=== PATIENT | male | born 1960 | race Caucasian/White ===

== ENCOUNTER 2022-01-14 08:09 | Inpatient (IN) ==
--- NOTE | 2022-01-14 08:29 | Emergency Department Note ---
Impression & Plan Acute pulmonary embolism, Chest pain, SOB (shortness of breath), Pulmonary cavitary lesion ED Provider Note Name: GUERLINE SRIVASTAVA Age: 61 Sex: M Arrives Via: Walk-In Informant: Patient ED Provider: Cullen Bailey MD Chief Complaint: Chest pain Impression: As per impressions above Medical Decision Makin-year-old gentleman arrives for evaluation of pleuritic left-sided chest pain. Patient with a history of hypertension, BPH, anemia who previously was living in [place] until moving here fairly recently. He did have COVID about a year and a half ago. Given the amount of discomfort distress he is in a CT of the chest was obtained for angio/PE. It reveals a right lower lobe PE and diffuse scarring/infiltrate/edema of bilateral lungs as well as a right upper lobe cavitary lesion that is 2 cm in size. Patient without any significant recent TB risk factors but was previously in the served throughout the [facility]. He has had multiple negative TB tests since then no and he notes previous CT that never showed this lesion before. At this point we will keep in airborne precautions until cleared by hospitalist/pulmonology. As for his chest pain he was given some IV narcotics with improvement in pain. He has no significant EKG findings nor elevated troponin thus I do not feel that this is consistent with ACS given its ongoing nature. He was started on heparin for the PE especially given the amount of dyspnea is having with it. I did discuss the risks and benefits he is agreeable to proceeding. Hospitalist then for further management. Prior Medical Record and Triage/Nursing Notes reviewed by Me Additional history obtained from chart Differentials: Cardiac ischemia, aortic dissection, pulmonary embolism, pneumothorax, pneumonia, pericarditis, myocarditis, esophageal rupture, GERD, cholecystitis, pancreatitis, musculoskeletal, as well as other pathologies. Vital Signs: reviewed and remarkable for no significant abnormalities Interventions: Dilaudid IV, heparin IV Labs:Reviewed and remarkable for negative COVID, positive dimer, negative Trope Imaging:CT imaging of the chest with angio as per radiologist CT read on chart of note right upper lobe cavitary lesion, PE in the right, bilateral inflammatory/overload next EKG:As per my interpretation. Patient chest pain. Normal sinus rhythm at 88 bpm with a QTC of 471. There is no previous EKG for comparison. There is no ectopy nor ischemia appreciated. Cardiac/Tele Monitoring: Cardiac Monitoring: An Order was placed for continuous cardiac monitoring. The monitor shows a rate of 80 with a normal sinus rhythm. Consults:Dr Nolberto BERTRAND Hospitalist Plan: Disposition:Hospitalization. Condition: Good History of Present Illness:61-year-old M arrives for evaluation of left-sided chest pain. Pain began yesterday. Primarily associated with feeling he cannot catch his breath. He has significant pain with any deep inspiration. It is worse with movement. Does sometimes come in waves. States the pain is sharp stabbing left-sided chest sometimes through to his back. Denies any radiation to neck/arm/right-sided chest or abdomen. Denies any nausea, vomiting, fevers, chills, syncope, palpitations, leg swelling, calf pain, bleeding/bruising, headaches, neck pain, neurologic deficits or other concerning signs or symptoms. He has no history of cardiac disease. He has a grandmother had a history of a heart attack. Patient has a history of hypertension, BPH, anemia, insomnia. Notes has been having some issues keeping his blood pressure under control. He also notes that he had a history of a right leg swelling with an elevated D- dimer. At that time he had an ultrasound of the leg but the swelling went away and he never had any issues again. The ultrasound did not show DVT when it was done years ago. No medications prior to arrival. Patient notes a deep breath makes his chest pain worse rest makes it better. ROS: See above HPI for pertinent positives & negatives. A total of 10 systems reviewed and were otherwise negative. 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 Home Medications:Amitriptyline, terazosin Allergies:No known drug allergies the notes he had side effects with an unknown pain medicine one-point in the past. Vitals:Blood Pressure: 195/103, Pulse 90, RR 18, T 36.5C, O2 98% on RA Physical Exam: GENERAL: Patient is uncomfortable appearing and in moderate distress. EYES: No scleral icterus, unremarkable pupils. ENT: Mucous membranes moist, no nasal congestion. NECK: No masses appreciated, nomeningismus, trachea is midline. RESPIRATORY: Dyspnea and tachypnea with discomfort. Clear to auscultation and eq ual bilaterally. No wheeze, no rhonchi. CARDIOVASCULAR: Regular rate and rhythm.No murmurs, rubs, gallops appreciated. GASTROINTESTINAL: Abdomen soft, non-tender, no peritonitis.Bowel sounds posit shiela.No masses appreciated. BACK: No midline tenderness, no CVA tenderness EXTREMITIES: Normal motion all extremities, no cyanosis, no edema. NEUROLOGIC: Alert and oriented, no acute motor or sensory deficits, no focal weakness, cranial nerves grossly intact. SKIN: No rash, no jaundice, no diaphoresis. PSYCH: Appropriate GCS: 15 ED Course: Times/Reassessments: Multiple repeat evaluations blood pressure coming down patient is feeling better. He is agreeable to heparin for his PE. Critical Care: I have personally spent 35 minutes of critical care time in the direct management of this patient. Acute pulmonary embolism requiring IV heparin. This was a life/limb threatening event. This 35 minutes is in excess of all separately billable procedures. Cullen Bailey MD Past Med/Surg History Surgical History History of left hip replacement 2020 Family History Father Stomach cancer Mother Rheumatoid arthritis Social History Smoking Status: Never smoker Second Hand Exposure: No; Hx Alcohol Use: Yes Alcohol type: hard liquor Alcohol Intake Frequency: 2-3 x/Week Hx Substance Use: No Preferred Language: Luxembourger Communication Ability: Effective Visual Impairment: Diminished Hearing Ability: Hard of Hearing Deputy Treasurer Required: No Beliefs That Will Affect Care: None marital status: Current Living Situation: Spouse and Family current occupational status: retired Feels Safe at Home: Yes Childhood Exposure to Second-Hand Smoke: Yes caffeine: Yes Dental Care, Regularly: Yes Physical Activity Frequency: 1-2 Times per Week Physical Activity Frequency Comment: walk Seatbelt Use: always Sunscreen Use: Yes Do you think of yourself as: straight/heterosexual Assistive Devices: Oxygen - Continuous Allergies Allergies Allergy/AdvReac Type Severity Reaction Status Date / Time No Known Allergies Allergy Verified 12/10/21 09:39 Home Meds Previous Rx's Medication Instructions Recorded amitriptyline 10 mg tablet 10 mg PO DAILY 30 days #30 tabs 12/10/21 terazosin 2 mg capsule 2 mg PO DAILY #30 caps 12/10/21 Results & Data (ED) Vital Signs Vital Signs - 24 hr 01/14/22 08:13 01/14/22 08:49 01/14/22 08:34 Temperature 36.5 C Temperature Source Oral Pulse Rate 90 86 Pulse Rate from SpO2 Sensor 86 Respiratory Rate 18 31 H Blood Pressure 195/103 H Blood Pressure Mean 133 Blood Pressure Position Sitting Pulse Oximetry 98 82 L 95 Oxygen Delivery Method Room Air Room Air Room Air Oxygen Flow Rate Sepsis Recent Fever Within 48 Hours No Sepsis New/Unexplained Change in Mental Status No Sepsis Action Taken by Nursing No Action Required Oxygen Flow Rate - Titration 3 Pulse Oximetry Post Tiitration 94 01/14/22 08:37 01/14/22 08:37 01/14/22 08:40 Temperature Temperature Source Pulse Rate 91 H 89 Pulse Rate from SpO2 Sensor 90 89 Respiratory Rate 23 25 H Blood Pressure 182/114 H Blood Pressure Mean 136 Blood Pressure Position Pulse Oximetry 95 89 L 93 Oxygen Delivery Method Room Air Nasal Cannula Room Air Oxygen Flow Rate 2 2 Sepsis Recent Fever Within 48 Hours Sepsis New/Unexplained Change in Mental Status Sepsis Action Taken by Nursing Oxygen Flow Rate - Titration Pulse Oximetry Post Tiitration 01/14/22 08:59 01/14/22 08:59 01/14/22 09:00 Temperature Temperature Source Pulse Rate 87 Pulse Rate from SpO2 Sensor 82 Respiratory Rate 28 H Blood Pressure 194/121 H 190/118 H Blood Pressure Mean 145 142 Blood Pressure Position Pulse Oximetry 92 Oxygen Delivery Method Room Air Nasal Cannula Nasal Cannula Oxygen Flow Rate 2 2 2 Sepsis Recent Fever Within 48 Hours Sepsis New/Unexplained Change in Mental Status Sepsis Action Taken by Nursing Oxygen Flow Rate - Titration Pulse Oximetry Post Tiitration 01/14/22 09:00 01/14/22 09:10 01/14/22 09:20 Temperature Temperature Source Pulse Rate 85 95 H 98 H Pulse Rate from SpO2 Sensor 89 93 H 100 H Respiratory Rate 27 H 23 12 Blood Pressure Blood Pressure Mean Blood Pressure Position Pulse Oximetry 95 99 97 Oxygen Delivery Method Nasal Cannula Nasal Cannula Nasal Cannula Oxygen Flow Rate 2 2 2 Sepsis Recent Fever Within 48 Hours Sepsis New/Unexplained Change in Mental Status Sepsis Action Taken by Nursing Oxygen Flow Rate - Titration Pulse Oximetry Post Tiitration 01/14/22 09:30 01/14/22 09:30 01/14/22 09:40 Temperature Temperature Source Pulse Rate 88 88 Pulse Rate from SpO2 Sensor 90 Respiratory Rate 10 L 14 Blood Pressure 163/105 H Blood Pressure Mean 124 Blood Pressure Position Pulse Oximetry 97 Oxygen Delivery Method Nasal Cannula Nasal Cannula Nasal Cannula Oxygen Flow Rate 2 2 2 Sepsis Recent Fever Within 48 Hours Sepsis New/Unexplained Change in Mental Status Sepsis Action Taken by Nursing Oxygen Flow Rate - Titration Pulse Oximetry Post Tiitration 01/14/22 09:50 01/14/22 10:03 01/14/22 10:10 Temperature Temperature Source Pulse Rate 86 101 H 92 H Pulse Rate from SpO2 Sensor 88 98 H 92 H Respiratory Rate 12 34 H 13 Blood Pressure Blood Pressure Mean Blood Pressure Position Pulse Oximetry 100 96 Oxygen Delivery Method Nasal Cannula Nasal Cannula Nasal Cannula Oxygen Flow Rate 2 2 2 Sepsis Recent Fever Within 48 Hours Sepsis New/Unexplained Change in Mental Status Sepsis Action Taken by Nursing Oxygen Flow Rate - Titration Pulse Oximetry Post Tiitration 01/14/22 10:20 01/14/22 10:30 01/14/22 10:30 Temperature Temperature Source Pulse Rate 89 96 H Pulse Rate from SpO2 Sensor 88 93 H Respiratory Rate 16 18 Blood Pressure 161/95 H Blood Pressure Mean 117 Blood Pressure Position Pulse Oximetry 94 93 Oxygen Delivery Method Nasal Cannula Nasal Cannula Nasal Cannula Oxygen Flow Rate 2 2 2 Sepsis Recent Fever Within 48 Hours Sepsis New/Unexplained Change in Mental Status Sepsis Action Taken by Nursing Oxygen Flow Rate - Titration Pulse Oximetry Post Tiitration 01/14/22 10:40 01/14/22 10:50 01/14/22 11:00 Temperature Temperature Source Pulse Rate 85 86 Pulse Rate from SpO2 Sensor 94 H 86 Respiratory Rate 21 18 Blood Pressure 151/103 H Blood Pressure Mean 119 Blood Pressure Position Pulse Oximetry 93 93 Oxygen Delivery Method Nasal Cannula Nasal Cannula Nasal Cannula Oxygen Flow Rate 2 2 2 Sepsis Recent Fever Within 48 Hours Sepsis New/Unexplained Change in Mental Status Sepsis Action Taken by Nursing Oxygen Flow Rate - Titration Pulse Oximetry Post Tiitration 01/14/22 11:00 Temperature Temperature Source Pulse Rate 89 Pulse Rate from SpO2 Sensor Respiratory Rate 17 Blood Pressure Blood Pressure Mean Blood Pressure Position Pulse Oximetry Oxygen Delivery Method Nasal Cannula Oxygen Flow Rate 2 Sepsis Recent Fever Within 48 Hours Sepsis New/Unexplained Change in Mental Status Sepsis Action Taken by Nursing Oxygen Flow Rate - Titration Pulse Oximetry Post Tiitration Laboratory Data Result diagrams: 01/14/22 08:30 01/14/22 08:30 Lab Results 01/14/22 01/14/22 01/14/22 Range/Units 08:30 08:30 08:30 WBC 8.31 (4.8-10.8) K/ul RBC 5.30 (4.63-6.08) M/uL Hgb 14.8 (14.0-18.0) g/dl POC Hgb (14.0-18.0) g/dl Hct 44.8 (40.1-51.0) % POC Hct (42-52) % MCV 84.5 (80.0-100.0) fL MCH 27.9 (25.0-34.0) pg MCHC 33.0 (32.0-36.0) g/dL RDW Std Deviation 42.3 (36.4-46.3) fL RDW Coeff of Maria Elena 13.8 (11.5-14.5) % Plt Count 245 (130-400) K/uL MPV 9.5 (9.4-12.4) fL Immature Gran % (Auto) 0.4 % Neut % (Auto) 76.9 % Lymph % (Auto) 13.7 % Sheridan % (Auto) 7.9 % Eos % (Auto) 0.6 % Baso % (Auto) 0.5 % Neut # (Auto) 6.39 (1.4-6.5) K/uL Lymph # (Auto) 1.14 L (1.2-3.4) K/uL Sheridan # (Auto) 0.66 (0.24-0.82) K/uL Eos # (Auto) 0.05 (0-0.50) K/uL Baso # (Auto) 0.04 (0-0.2) K/uL Immature Gran # (Auto) 0.03 H (0.00-0.02) K/uL PT 10.3 (9.0-12.0) Seconds INR 1.0 (0.9-1.1) APTT 26.6 (21.0-31.0) Seconds PTT Ratio 1.0 D-Dimer 800 H* (0-500) ug/L FEU POC Sodium (135-144) mmol/L Sodium 140 (136-145) mmol/L POC Potassium (3.3-5.0) mmol/L Potassium 3.8 (3.5-5.1) mmol/L POC Chloride (101-112) mmol/L Chloride 104 (98-107) mmol/L Carbon Dioxide 29 (21-32) mmol/L POC Total CO2 (24-31) mmol/L Anion Gap 7 (3-11) POC Anion Gap (16-25) mmol/L POC BUN (7-18) mg/dl BUN 9 (6-23) mg/dl Creatinine 0.94 (0.6-1.4) mg/dl POC Creatinine (0.6-1.3) mg/dl Est Cr Clr Drug Dosing 113.4 ml/min Est GFR ( Amer) 101.0 ml/min Est GFR (Non-Af Amer) 87.2 ml/min BUN/Creatinine Ratio 9.6 L (10-20) Glucose 111 H (70-99(Fasting)) mg/dl POC Glucose (70-99) mg/dl POC Glucose (other) Calcium 9.5 (8.5-10.1) mg/dl POC Ioniz Calcium Brooke (1.12-1.32) mmol/l Magnesium 1.9 (1.7-2.4) mg/dl Total Bilirubin 1.0 (0.2-1.0) mg/dl Direct Bilirubin 0.1 (0-0.2) mg/dl AST 12 L (13-39) U/L ALT 11 (7-52) U/L Alkaline Phosphatase 76 (34-104) U/L Troponin I High Sens 3.7 (0-20) pg/ml Total Protein 7.7 (6.0-8.3) gm/dl Albumin 4.4 (3.4-5.0) gm/dl Lipase 10 L (11-82) U/L Procalcitonin (0-0.5) ng/ml SARS-CoV-2 (PCR) (Negative) Influenza Type A (PCR) (Neg) Influenza Type B (PCR) (Neg) RSV (RT-PCR) (Neg) 01/14/22 01/14/22 01/14/22 Range/Units 08:30 08:35 08:40 WBC (4.8-10.8) K/ul RBC (4.63-6.08) M/uL Hgb (14.0-18.0) g/dl POC Hgb 15.3 (14.0-18.0) g/dl Hct (40.1-51.0) % POC Hct 45 (42-52) % MCV (80.0-100.0) fL MCH (25.0-34.0) pg MCHC (32.0-36.0) g/dL RDW Std Deviation (36.4-46.3) fL RDW Coeff of Maria Elena (11.5-14.5) % Plt Count (130-400) K/uL MPV (9.4-12.4) fL Immature Gran % (Auto) % Neut % (Auto) % Lymph % (Auto) % Sheridan % (Auto) % Eos % (Auto) % Baso % (Auto) % Neut # (Auto) (1.4-6.5) K/uL Lymph # (Auto) (1.2-3.4) K/uL Sheridan # (Auto) (0.24-0.82) K/uL Eos # (Auto) (0-0.50) K/uL Baso # (Auto) (0-0.2) K/uL Immature Gran # (Auto) (0.00-0.02) K/uL PT (9.0-12.0) Seconds INR (0.9-1.1) APTT (21.0-31.0) Seconds PTT Ratio D-Dimer (0-500) ug/L FEU POC Sodium 141 (135-144) mmol/L Sodium (136-145) mmol/L POC Potassium 3.7 (3.3-5.0) mmol/L Potassium (3.5-5.1) mmol/L POC Chloride 103 (101-112) mmol/L Chloride (98-107) mmol/L Carbon Dioxide (21-32) mmol/L POC Total CO2 28 (24-31) mmol/L Anion Gap (3-11) POC Anion Gap 15.0 L (16-25) mmol/L POC BUN 9 (7-18) mg/dl BUN (6-23) mg/dl Creatinine (0.6-1.4) mg/dl POC Creatinine 1.0 (0.6-1.3) mg/dl Est Cr Clr Drug Dosing ml/min Est GFR ( Amer) ml/min Est GFR (Non-Af Amer) ml/min BUN/Creatinine Ratio (10-20) Glucose (70-99(Fasting)) mg/dl POC Glucose 99 (70-99) mg/dl POC Glucose (other) TNP Calcium (8.5-10.1) mg/dl POC Ioniz Calcium Brooke 1.19 (1.12-1.32) mmol/l Magnesium (1.7-2.4) mg/dl Total Bilirubin (0.2-1.0) mg/dl Direct Bilirubin (0-0.2) mg/dl AST (13-39) U/L ALT (7-52) U/L Alkaline Phosphatase (34-104) U/L Troponin I High Sens (0-20) pg/ml Total Protein (6.0-8.3) gm/dl Albumin (3.4-5.0) gm/dl Lipase (11-82) U/L Procalcitonin < 0.05 (0-0.5) ng/ml SARS-CoV-2 (PCR) (Negative) Influenza Type A (PCR) (Neg) Influenza Type B (PCR) (Neg) RSV (RT-PCR) (Neg) 01/14/22 Range/Units 09:56 WBC (4.8-10.8) K/ul RBC (4.63-6.08) M/uL Hgb (14.0-18.0) g/dl POC Hgb (14.0-18.0) g/dl Hct (40.1-51.0) % POC Hct (42-52) % MCV (80.0-100.0) fL MCH (25.0-34.0) pg MCHC (32.0-36.0) g/dL RDW Std Deviation (36.4-46.3) fL RDW Coeff of Maria Elena (11.5-14.5) % Plt Count (130-400) K/uL MPV (9.4-12.4) fL Immature Gran % (Auto) % Neut % (Auto) % Lymph % (Auto) % Sheridan % (Auto) % Eos % (Auto) % Baso % (Auto) % Neut # (Auto) (1.4-6.5) K/uL Lymph # (Auto) (1.2-3.4) K/uL Sheridan # (Auto) (0.24-0.82) K/uL Eos # (Auto) (0-0.50) K/uL Baso # (Auto) (0-0.2) K/uL Immature Gran # (Auto) (0.00-0.02) K/uL PT (9.0-12.0) Seconds INR (0.9-1.1) APTT (21.0-31.0) Seconds PTT Ratio D-Dimer (0-500) ug/L FEU POC Sodium (135-144) mmol/L Sodium (136-145) mmol/L POC Potassium (3.3-5.0) mmol/L Potassium (3.5-5.1) mmol/L POC Chloride (101-112) mmol/L Chloride (98-107) mmol/L Carbon Dioxide (21-32) mmol/L POC Total CO2 (24-31) mmol/L Anion Gap (3-11) POC Anion Gap (16-25) mmol/L POC BUN (7-18) mg/dl BUN (6-23) mg/dl Creatinine (0.6-1.4) mg/dl POC Creatinine (0.6-1.3) mg/dl Est Cr Clr Drug Dosing ml/min Est GFR ( Amer) ml/min Est GFR (Non-Af Amer) ml/min BUN/Creatinine Ratio (10-20) Glucose (70-99(Fasting)) mg/dl POC Glucose (70-99) mg/dl POC Glucose (other) Calcium (8.5-10.1) mg/dl POC Ioniz Calcium Brooke (1.12-1.32) mmol/l Magnesium (1.7-2.4) mg/dl Total Bilirubin (0.2-1.0) mg/dl Direct Bilirubin (0-0.2) mg/dl AST (13-39) U/L ALT (7-52) U/L Alkaline Phosphatase (34-104) U/L Troponin I High Sens (0-20) pg/ml Total Protein (6.0-8.3) gm/dl Albumin (3.4-5.0) gm/dl Lipase (11-82) U/L Procalcitonin (0-0.5) ng/ml SARS-CoV-2 (PCR) NEGATIVE (Negative) Influenza Type A (PCR) Negative (Neg) Influenza Type B (PCR) Negative (Neg) RSV (RT-PCR) Negative (Neg) Administered Medications Amitriptyline HCl (Amitriptyline Hcl 10 Mg Tab) 10 mg PO HS [facility] Stop: 02/13/22 20:59 Last Admin: 01/14/22 20:13 Dose: 10 mg Documented By: CHRISTIAN Amoxicillin/Clavulanate Potassium (Amoxicillin/Clavulanate 875 Mg Tab) 1 tab PO BIDM CARROLL Stop: 01/21/22 16:59 Last Admin: 01/14/22 20:12 Dose: 1 tab Documented By: CHRISTIAN Hydromorphone HCl (Hydromorphone Inj 1 Mg/Ml Syringe) 1 mg IV Q15M PRN PRN Reason: Pain Stop: 01/28/22 09:07 Last Admin: 01/14/22 13:25 Dose: 1 mg Documented By: DANIELLE Heparin Sodium/Dextrose (Heparin Sodium/Dextrose) 25,000 units in 500 mls @ 35 mls/hr IV .[id number] CARROLL; Protocol Stop: 02/13/22 10:29 Last Titration: 01/14/22 20:19 Dose: 1,850 units/hr, 37 mls/hr Documented By: CHRISTIAN Co-signed By: MG Titration: 01/14/22 19:10 Dose: 1,750 units/hr, 35 mls/hr Documented By: YESSENIA Co-signed By: CHRISTIAN Titration: 01/14/22 18:43 Dose: 1,750 units/hr, 35 mls/hr Documented By: YESSENIA Co-signed By: RRR Admin: 01/14/22 11:17 Dose: 1,750 units/hr, 35 mls/hr Documented By: ALDA Co-signed By: MMZ Losartan Potassium (Losartan Potassium 25 Mg Tab) 25 mg PO QAM CARROLL Stop: 02/13/22 13:15 Last Admin: 01/14/22 15:25 Dose: 25 mg Documented By: DANIELLE Discontinued Medications Furosemide (Furosemide Inj 20 Mg/2 Ml Vial) 20 mg IV ONE ONE Stop: 01/14/22 13:17 Last Admin: 01/14/22 15:04 Dose: Not Given Documented By: DANIELLE Furosemide (Furosemide 40 Mg/4 Ml Vial) Confirm Administered Dose 40 mg IV .STK- MED ONE Stop: 01/14/22 14:50 Last Admin: 01/14/22 15:03 Dose: 20 mg Documented By: DANIELLE Heparin Sodium (Porcine) (Heparin Sod (Porcine) 1000 Unit/Ml) 5,000 units IV NOW ONE Stop: 01/14/22 11:01 Last Admin: 01/14/22 11:17 Dose: 5,000 units Documented By: ALDA Co-signed By: MANDO Hydromorphone HCl (Hydromorphone Inj 1 Mg/Ml Syringe) 1 mg IV NOW STA Stop: 01/14/22 08:31 Last Admin: 01/14/22 08:34 Dose: 1 mg Documented By: DANIELLE Ioversol (Optiray 320 500ml) 113 ml IV ONCE ONE Stop: 01/14/22 09:01 Last Admin: 01/14/22 09:01 Dose: 113 ml Documented By: LY Ondansetron HCl (Ondansetron Inj 2 Mg/Ml 2 Ml Vial) 4 mg IV NOW STA Stop: 01/14/22 08:31 Last Admin: 01/14/22 08:34 Dose: 4 mg Documented By: DANIELLE Imaging Data Radiologist's Impression: Chest CTA 01/14/22 08:25 CT ANGIOGRAM OF THE CHEST CLINICAL HISTORY: Atypical chest pain. Epigastric abdominal pain COMPARISON STUDY: No priors. TECHNIQUE: Following the IV administration of 113 cc of Optiray 320, CT angiogram of the chest was performed from the upper abdomen to the thoracic inlet utilizing the pulmonary embolus protocol. Images are reviewed in the axial, sagittal, and coronal planes. 3-D MIPS images are created and assessed. IV contrast was administered without complication. A dose lowering technique was utilized adhering to the principles of ALARA. The examination is compromised by motion artifact. CT DOSE: 695.22 mGy.cm FINDINGS: Thyroid: Imaged portions of the thyroid gland are normal in size and attenuation. Thoracic aorta: The thoracic aorta is normal in caliber and demonstrates standard 3-vessel arch anatomy. No dissection is seen. Pulmonary vasculature: The pulmonary trunk is normal in caliber. There is a subsegmental pulmonary embolus within a branch of the right lower lobe pulmonary artery. This is best seen on image #98. No additional pulmonary emboli are identified. Heart: The heart is mildly enlarged and without pericardial effusion. Lungs and pleural spaces: Evaluation of the lung parenchyma is degraded by motion artifact. There are trace pleural effusions with dependent atelectasis. A 2.0 x 1.3 cm irregular nodules at the right apex with central cavitation. This is best seen on image #217.. Additional airspace opacities are seen throughout both lungs. Diffuse peribronchial thickening is observed. Mediastinum: There is no mediastinal lymphadenopathy. Sherita: Clear. Axillae: There is no axillary lymphadenopathy. Upper abdomen: A right lobe hepatic cyst measures 2.5 cm. Partially imaged upper abdominal viscera is otherwise grossly unremarkable. Skeletal structures: No lytic or blastic bony lesions are seen. IMPRESSION: 1. There is a subsegmental pulmonary embolus within a branch of the right lower lobe pulmonary artery. 2. The remaining pulmonary vessels appear clear. 3. Cardiomegaly and trace pleural effusions. 4. There is a 2.0 cm irregular nodular opacity at the right apex with central cavitation which could be on an infectious/inflammatory basis. Neoplasm is not excluded. A 2-3 month follow-up chest CT is recommended for reassessment. 5. Additional airspace opacities are seen throughout both lungs. This could be on an infectious/inflammatory basis or could represent fluid overload/congestive change. Clinical correlation will be required and radiographic follow-up to resolution is recommended. 6. Additional findings as above. ACT 112: Positive. There are findings on this exam that require communication between the performing entity and the patient following Patient Test Result Information Act ([place] Act 112) guidelines. Electronically signed by: Francisco Javier Gonzalez M.D. 01/14/2022 9:39 AM Discharge Plan Visit Data Chief Complaint: Chest Pain Stated Complaint: CHEST PAIN ED Provider: Cullen Bailey Discharge Problem: Acute pulmonary embolism, Chest pain, SOB (shortness of breath), Pulmonary cavitary lesion Patient Disposition: Admitted As Inpatient Discharge Instructions Interventions: ED Discharge Assessment Last Done: 01/14/22 17:57 : Acute pulmonary embolism Qualifiers: Pulmonary embolism type: other Acute cor pulmonale presence: without acute cor pulmonale Qualified Code(s): I26.99 - Other pulmonary embolism without acute cor pulmonale Chest pain Qualifiers: Chest pain type: chest pain on breathing Qualified Code(s): R07.1 - Chest pain on breathing
[2022-01-14] MEDS ORDERED: HYDROmorphone INJ 1 MG/ML SYRINGE IV STA (08:30)
[2022-01-14] MEDS ORDERED: ONDANSETRON INJ 2 MG/ML 2 ML VIAL IV STA (08:30)
[2022-01-14 08:39] LABS: Basophils # (auto) 0.04 K/uL (0-0.2); Basophils % (auto) 0.5 %; Eosinophils # (auto) 0.05 K/uL (0-0.50); Eosinophils % (auto) 0.6 %; Hematocrit (blood only) 44.8 % (40.1-51.0); Hemoglobin 14.8 g/dl (14.0-18.0); Immature Granulocytes # (auto) 0.03 K/uL (0.00-0.02); Immature Granulocytes % (auto) 0.4 %; Lymphocytes # (auto) 1.14 K/uL (1.2-3.4); Lymphocytes % (auto) 13.7 %; Mean Corpuscular Hemoglobin 27.9 pg (25.0-34.0); Mean Corpuscular Volume 84.5 fL (80.0-100.0); Mean Platelet Volume 9.5 fL (9.4-12.4); Monocytes # (auto) 0.66 K/uL (0.24-0.82); Monocytes % (auto) 7.9 %; Neutrophils # (auto) 6.39 K/uL (1.4-6.5); Neutrophils % (auto) 76.9 %; Platelet Count 245 K/uL (130-400); RDW Coefficient of Variation 13.8 % (11.5-14.5); RDW Standard Deviation 42.3 fL (36.4-46.3); White Blood Count 8.31 K/ul (4.8-10.8)
[2022-01-14 08:55] LABS: Partial Thromboplastin Time 26.6 Seconds (21.0-31.0); Prothrombin Time 10.3 Seconds (9.0-12.0)
[2022-01-14 09:00] LABS: D Dimer 800 ug/L FEU (0-500)
[2022-01-14] MEDS ORDERED: OPTIRAY 320 500ml IV ONE (09:00)
[2022-01-14 09:04] LABS: Albumin Level 4.4 gm/dl (3.4-5.0); BUN Creatinine Ratio 9.6 (10-20); Bilirubin Direct 0.1 mg/dl (0-0.2); Calcium 9.5 mg/dl (8.5-10.1); Creatinine Clr Calc Pharmacy 113.4 ml/min; Est GFR (Non-African American) 87.2 ml/min; Magnesium 1.9 mg/dl (1.7-2.4); Potassium 3.8 mmol/L (3.5-5.1); Total Protein 7.7 gm/dl (6.0-8.3)
[2022-01-14 09:05] LABS: Troponin I High Sensitivity 3.7 pg/ml (0-20)
[2022-01-14] MEDS ORDERED: HYDROmorphone INJ 1 MG/ML SYRINGE IV PRN (09:08)
--- NOTE | 2022-01-14 09:41 | CT Scan Report ---
CT ANGIOGRAM OF THE CHEST CLINICAL HISTORY: Atypical chest pain. Epigastric abdominal pain COMPARISON STUDY: No priors. TECHNIQUE: Following the IV administration of 113 cc of Optiray 320, CT angiogram of the chest was pe rformed from the upper abdomen to the thoracic inlet utilizing the pulmonary embolus protocol. Images are reviewed in the axial, sagittal, and coronal planes. 3-D MIPS images are created and assessed. I V contrast was administered without complication. A dose lowering technique was utilized adhering to the principles of ALARA. The examination is compromised by motion artifact. CT DOSE: 695.22 mGy.cm FINDINGS: Thyroid: Imaged portions of the thyroid gland are normal in size and attenuation. Thoracic aorta: The thoracic aorta is normal in caliber and demonstrates standard 3-vessel arch anato my. No dissection is seen. Pulmonary vasculature: The pulmonary trunk is normal in caliber. There is a subsegmental pulmonary em bolus within a branch of the right lower lobe pulmonary artery. This is best seen on image #98. No ad ditional pulmonary emboli are identified. Heart: The heart is mildly enlarged and without pericardial effusion. Lungs and pleural spaces: Evaluation of the lung parenchyma is degraded by motion artifact. There are trace pleural effusions with dependent atelectasis. A 2.0 x 1.3 cm irregular nodules at the right ap ex with central cavitation. This is best seen on image #217.. Additional airspace opacities are seen throughout both lungs. Diffuse peribronchial thickening is observed. Mediastinum: There is no mediastinal lymphadenopathy. Sherita: Clear. Axillae: There is no axillary lymphadenopathy. Upper abdomen: A right lobe hepatic cyst measures 2.5 cm. Partially imaged upper abdominal viscera is otherwise grossly unremarkable. Skeletal structures: No lytic or blastic bony lesions are seen. IMPRESSION: 1. There is a subsegmental pulmonary embolus within a branch of the right lower lobe pulmonary artery . 2. The remaining pulmonary vessels appear clear. 3. Cardiomegaly and trace pleural effusions. 4. There is a 2.0 cm irregular nodular opacity at the right apex with central cavitation which could be on an infectious/inflammatory basis. Neoplasm is not excluded. A 2-3 month follow-up chest CT is r ecommended for reassessment. 5. Additional airspace opacities are seen throughout both lungs. This could be on an infectious/infla mmatory basis or could represent fluid overload/congestive change. Clinical correlation will be requi red and radiographic follow-up to resolution is recommended. 6. Additional findings as above. ACT 112: Positive. There are findings on this exam that require communication between the performing entity and the patient following Patient Test Result Information Act ([place] Act 112) guidelines. Electronically signed by: Francisco Javier Gonzalez M.D. 01/14/2022 9:39 AM
[2022-01-14] MEDS ORDERED: Heparin IV Adult Wt-Based Standard WITH Bolus Protocol IV STA (10:06)
[2022-01-14] MEDS ORDERED: Heparin IV Adult Wt-Based Standard WITH Bolus Protocol IV SCH (10:15)
[2022-01-14] MEDS ORDERED: HEPARIN SOD (PORCINE) 1000 UNIT/ML IV ONE ×2 (10:21→11:00)
[2022-01-14 10:26] LABS: iSTAT Blood Urea Nitrogen 9 mg/dl (7-18); iSTAT Carbon Dioxide 28 mmol/L (24-31); iSTAT Chloride 103 mmol/L (101-112); iSTAT Hematocrit 45 % (42-52); iSTAT Hemoglobin 15.3 g/dl (14.0-18.0); iSTAT Ionized Calcium 1.19 mmol/l (1.12-1.32); iSTAT Potassium 3.7 mmol/L (3.3-5.0); iSTAT Sodium 141 mmol/L (135-144)
--- NOTE | 2022-01-14 10:30 | History & Physical Report ---
Date of Service January 14, 2022 Assessment & Plan (1) Acute pulmonary embolism: Plan: Acute pulmonary embolism Hypertensive without tachycardia on admission Hemoglobin 14.8, MCV 84.5 on admission D-dimer 800, coags normal No potassium abnormalities Creatinine is with normal baseline, 0.94 on admission - CTA: 1. There is a subsegmental pulmonary embolus within a branch of the right lower lobe pulmonary artery.2. The remaining pulmonary vessels appear clear.3. Cardiomegaly and trace pleural effusions.4. There is a 2.0 cm irregular nodular opacity at the right apex with central cavitation which could be on an infectious/inflammatory basis. Neoplasm is not excluded. A 2-3 month follow-up chest CT is recommended for reassessment.5. Additional airspace opacities are seen throughout both lungs. This could be on an infectious/inflammatory basis or could represent fluid overload/congestive change. Clinical correlation will be required and radiographic follow-up to resolution is recommended.6. Additional findings as above. 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 COVID Patient has not had any fever, chills, productive cough, weight loss, night sweats. 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 Renal function is normal. BPH On terazosin as noted On insomnia On amitriptyline 10 mg nightly Anemia Hemoglobin normal on admission, MCV low end of normal on admission Hyperlipidemia Recent screening 12/31/2021 with PCP shows to glycerides 217/cholesterol 223/LDL 109/VLDL 43/HDL 71 Based on above profile and last PCP screening blood pressure of 146/9110-year ASCVD risk 11.8%, intermediate risk, estimated optimize level to 6.3% - A1C 5.5% Given 10-year ASCVD risk greater than 10% recommend moderate dose statin with repeat LDL in 6 weeks. Will initiate atorvastatin 40 mg either at discharge or and follow-up with PCP LDL less than 190, ASCVD 10-year risk DVT prophylaxis: Anticoagulated Diet: Heart healthy Disposition: Medical telemetry for potential IV antihypertensives, downgrade to MedSurg if doing well CODE STATUS: Full code (2) Hypertension: (3) HLD (hyperlipidemia): (4) BPH (benign prostatic hyperplasia): (5) Insomnia: History of Present Illness Primary Care Provider: Ayan Hopper DO Kyle López is a 61yo M with a PMHx of BPH, HTN, and anemia who presents with SoB and who is found to have PEs on Er evaluation. L sided chest pain with a tearing sensation R sided PE Elevated DD and ?DVT many years ago but PE and dopplers wer enegative, no work up in many years. 2cm cavitary lesion in RUL. 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 On isolation precauations. EKG: nsr, ?LVH. No st segment changes. "Cachorro" reports yesterday he stated having a pain in the low L rib. He noticed that it had a numbing sensation to it and as the day progressed it started to increase in intensity with pain shooting and radiating into the middle/left back. Hurt the most when layin down, but if he layed on it on the L side pain would improve a little. Laying on the R side worsened the pain. Woke up this morning and pain was still there, a little worse and decided to go to the ER rathe than PCP appointment. Pain this mornign had a more stabbing quality. Deep breaths have a little wosening pain early in the breath, then levels out. Breathing in the R lateral decubitus is the most painful position. Sitting up seems to improve pain a little. At best 2/10, worst (breathing laying on R side) up to 9/10. No squeezing or high ches tpressure/pain. Denies shortness of breath, but gets some spasm which makes it painful to breath. No sweats/night sweats. No fevers or chills. No weight loss in the prior few months. No night sweats. No cough. No productive or dry cough, no cough at baseline No swollen glands/neck lymph nodes that hes noticed Had a CT scan 3 years ago and had a 2cm liver and kidney cyst which was obtained due to back pain by occupational assessment. Hx of L hip replacement 02/05/[address] Bryant in [place]. PHMX: HTN, HLD. Was pending initiation of statin and antihypertensive. Amitryptaline for sleep Terazosin for prostate and blood pressure. From [place]. 12.5 years in the [employer] and travelled. Was in [place], then [place], After discharge joined [employer] where he worked for 30 years. Had a PPD regularly while in the [employer], no history of a positive one and for police screening always negative. COVID vaccinated x2 original shots Had COVID after his son brought home from school June 2020 No known COVID exposure in the last few months No FHX of prostate cancer, cancer, early NC, SCD, blood clots, or bleeding problems. Colonoscopy 1 year ago screenign was normal and recommend for 10 year followup 2 years ago did have leg swelling with heart racing from R knee distally and had a +DDimer, CA and US for DVT negative. Frequently takes car rides daily or every other day. takes drives wih his 2 year old son for 2-4 hours frequently. Was in the car when sx started. No leg swelling. Noted to have a larger heart and was very active in [place] and was monitored previously. No history of output/obstruction. + Anemia, no history of bleeding. Now normal. Medical History: Reviewed Medications: Reviewed Surgical History: Reviewed Allergies: Reviewed Social History: No history of tobacco use. EtoH 3-5 nights per week, 3x shot equivalent of liquor. No history of shakes/withdrawal. No DTs. Frequently has several day strenches without issue. Code Status: Full Code. Surrogate Dm would be his Mckayla Handy [phone] Allergies Allergy/AdvReac Type Severity Reaction Status Date / Time No Known Allergies Allergy Verified 12/10/21 09:39 Home Medications Medication Instructions Recorded Confirmed Type amitriptyline 10 mg tablet 10 mg PO DAILY 30 days #30 tabs 12/10/21 12/10/21 Rx terazosin 2 mg capsule 2 mg PO DAILY #30 caps 12/10/21 12/10/21 Rx Past Med/Surg History Surgical History History of left hip replacement 2019 Family History Father Stomach cancer Mother Rheumatoid arthritis Social History Smoking Status: Never smoker Second Hand Exposure: No; Hx Alcohol Use: Yes Alcohol type: hard liquor Alcohol Intake Frequency: 2-3 x/Week Hx Substance Use: No Preferred Language: Croatian Visual Impairment: Diminished Hearing Ability: Hard of Hearing Lining Maker Required: No marital status: Current Living Situation: Spouse current occupational status: retired Feels Safe at Home: Yes Childhood Exposure to Second-Hand Smoke: Yes caffeine: Yes Dental Care, Regularly: Yes Physical Activity Frequency: 1-2 Times per Week Physical Activity Frequency Comment: walk Seatbelt Use: always Sunscreen Use: Yes Do you think of yourself as: straight/heterosexual Review of Systems Review of Systems: All systems reviewed & are unremarkable except as noted in HPI & below Physical Exam Physical Exam: General: A&Ox3. NAD. Cooperative. HEENT: Atraumatic, normocephalic. Pulm: CTAB A&P. -wheezes, -rales, -rhonchi. Symmetrical chest rise. No increased work of breathing. No respiratory distress. Cardiac: RRR, -mrg. Radial pulses intact and symmetrical. Abdominal: Nontender, nondistended, soft. BS present. Ext: No calf asymmetry. No leg edema. Sensation/strength intact Results & Data Results & Data ([facility]) Vital Signs (Past 12 Hours) Vital Signs Temp Pulse Resp BP Pulse Ox O2 Del Method O2 Flow Rate 01/14/22 09:00 85 27 H 95 Nasal Cannula 2 01/14/22 09:00 190/118 H Nasal Cannula 2 01/14/22 08:59 87 28 H 92 Nasal Cannula 2 01/14/22 08:59 194/121 H Room Air 2 01/14/22 08:40 89 25 H 93 Room Air 2 01/14/22 08:37 182/114 H 89 L Nasal Cannula 2 01/14/22 08:37 91 H 23 95 Room Air 01/14/22 08:34 86 31 H 95 Room Air 01/14/22 08:49 82 L Room Air 01/14/22 08:13 36.5 C 90 18 195/103 H 98 Room Air PG Care Time/CCT Total # of Minutes Spent Total Time Spent with Patient: Total time spent is greater than 50% in coordination of care (as documented) at patient's floor/unit and/or counseling patient: Coding Level of Care Code 12173 Initial Inpt Care Lvl 2 Diagnoses Acute pulmonary embolism I26.99 Hypertension I10 HLD (hyperlipidemia) E78.5 BPH (benign prostatic hyperplasia) N40.0 Insomnia G47.00
[2022-01-14 10:54] LABS: Influenza A virus by PCR Negative (Neg); Influenza B virus by PCR Negative (Neg); RSV by PCR Negative (Neg); SARS CoV2 RNA(COVID-19)Cepheid NEGATIVE (Negative)
[2022-01-14] MEDS: HEPARIN SODIUM/DEXTROSE 25,000 UNITS/500 ML BAG IV SCH (11:17)
[2022-01-14] MEDS ORDERED: FUROSEMIDE INJ 20 MG/2 ML VIAL IV ONE (13:16)
[2022-01-14] MEDS ORDERED: FUROSEMIDE 40 MG/4 ML VIAL IV ONE (14:49)
[2022-01-14] MEDS: LOSARTAN POTASSIUM 25 MG TAB PO SCH (15:25)
--- NOTE | 2022-01-14 15:53 | XCELERA ---
[id number]
[2022-01-14 19:54] LABS: Partial Thromboplastin Ratio 1.5
[2022-01-14] MEDS: AMOXICILLIN/CLAVULANATE 875 MG TAB PO SCH (20:12)
[2022-01-14] MEDS ORDERED: AMITRIPTYLINE HCL 10 MG TAB PO SCH (21:00)
--- NOTE | 2022-01-14 21:56 | Electrocardiogram Report ---
Test Reason : Blood Pressure : / mmHG Vent. Rate : 088 BPM Atrial Rate : 088 BPM P-R Int : 188 ms QRS Dur : 104 ms QT Int : 390 ms P-R-T Axes : 034 -17 022 degrees QTc Int : 471 ms Poor data quality, interpretation may be adversely affected Normal sinus rhythm Normal ECG No previous ECGs available Confirmed by Rogers Bauer [id number]) on 01/14/2022 9:56:12 PM Referred By: Confirmed By:Rogers Bauer
[2022-01-15] MEDS: HEPARIN SODIUM/DEXTROSE 25,000 UNITS/500 ML BAG IV SCH ×2 (01:26→16:35)
[2022-01-15 02:23] LABS: Basophils # (auto) 0.03 K/uL (0-0.2); Basophils % (auto) 0.4 %; Eosinophils # (auto) 0.05 K/uL (0-0.50); Eosinophils % (auto) 0.7 %; Hematocrit (blood only) 43.8 % (40.1-51.0); Immature Granulocytes # (auto) 0.01 K/uL (0.00-0.02); Immature Granulocytes % (auto) 0.1 %; Lymphocytes # (auto) 1.28 K/uL (1.2-3.4); Lymphocytes % (auto) 18.1 %; Mean Corpuscular Hemoglobin 27.7 pg (25.0-34.0); Mean Corpuscular Volume 86.6 fL (80.0-100.0); Mean Platelet Volume 9.5 fL (9.4-12.4); Monocytes # (auto) 0.92 K/uL (0.24-0.82); Neutrophils % (auto) 67.7 %; Platelet Count 223 K/uL (130-400); Red Blood Count 5.06 M/uL (4.63-6.08); White Blood Count 7.09 K/ul (4.8-10.8)
[2022-01-15 02:41] LABS: BUN Creatinine Ratio 9.3 (10-20); C Reactive Protein 3.76 mg/dl (0-0.5); Creatinine Clr Calc Pharmacy 107.4 ml/min; Est GFR (African American) 97.3 ml/min; Est GFR (Non-African American) 83.9 ml/min; Potassium 3.7 mmol/L (3.5-5.1)
[2022-01-15 02:49] LABS: Partial Thromboplastin Ratio 1.9
[2022-01-15 02:58] LABS: Partial Thromboplastin Time 52.9 Seconds (21.0-31.0)
[2022-01-15] MEDS: AMOXICILLIN/CLAVULANATE 875 MG TAB PO SCH (08:40)
[2022-01-15] MEDS: LOSARTAN POTASSIUM 25 MG TAB PO SCH (08:40)
[2022-01-15] MEDS ORDERED: ATORVASTATIN 40 MG TAB PO SCH (09:00)
[2022-01-15] MEDS ORDERED: TERAZOSIN HCL 1 MG CAP PO SCH (09:00)
--- NOTE | 2022-01-15 09:15 | Progress Note ---
Date of Service January 15, 2022 Assessment & Plan (1) Acute pulmonary embolism: Plan: Acute pulmonary embolism Hypertensive without tachycardia on admission Hemoglobin 14.8, MCV 84.5 on admission D-dimer 800, coags normal No potassium abnormalities Creatinine is with normal baseline, 0.94 on admission - CTA: 1. There is a subsegmental pulmonary embolus within a branch of the right lower lobe pulmonary artery.2. The remaining pulmonary vessels appear clear.3. Cardiomegaly and trace pleural effusions.4. There is a 2.0 cm irregular nodular opacity at the right apex with central cavitation which could be on an infectious/inflammatory basis. Neoplasm is not excluded. A 2-3 month follow-up chest CT is recommended for reassessment.5. Additional airspace opacities are seen throughout both lungs. This could be on an infectious/inflammatory basis or could represent fluid overload/congestive change. Clinical correlation will be required and radiographic follow-up to resolution is recommended.6. Additional findings as above. 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 COVID Patient has not had any fever, chills, productive cough, weight loss, night sweats. 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 Renal function is normal. BPH On terazosin as noted On insomnia On amitriptyline 10 mg nightly Anemia Hemoglobin normal on admission, MCV low end of normal on admission Hyperlipidemia Recent screening 12/31/2021 with PCP shows to glycerides 217/cholesterol 223/LDL 109/VLDL 43/HDL 71 Based on above profile and last PCP screening blood pressure of 146/9110-year ASCVD risk 11.8%, intermediate risk, estimated optimize level to 6.3% - A1C 5.5% Given 10-year ASCVD risk greater than 10% recommend moderate dose statin with repeat LDL in 6 weeks. Will initiate atorvastatin 40 mg either at discharge or and follow-up with PCP LDL less than 190, ASCVD 10-year risk DVT prophylaxis: Anticoagulated Diet: Heart healthy Disposition: Medical telemetry for potential IV antihypertensives, downgrade to MedSurg if doing well CODE STATUS: Full code Acute cor pulmonale presence: without acute cor pulmonale Pulmonary embolism type: other Qualified Code(s): I26.99 - Other pulmonary embolism without acute cor pulmonale (2) Hypertension: (3) HLD (hyperlipidemia): (4) BPH (benign prostatic hyperplasia): (5) Insomnia: Admission and Anticipated Discharge Date Admission Date: January 14, 2022 Subjective This is a 61 y/o M with a pertaining history of DVT (3 years prior), HTN, BPH, Anemia presenting with 2 days of intermittant lower left-sides chest pain, and dyspnea. He was found to elevated D-Dimer and CTA was postive for a pulmonary embolism in the lower right lobe. He notes the pain in his chest comes with no pattern and while he is feeling the pain he becomes short of breath. The pain is felt in the front of his lower left ribs and in the left side of his back (around T8). He has not had anything like this before and has no history of PE or recent surgery, but has recently been taking lots of drives to look at potential homes. PSHx of left hip replacement in 2019. Since then he has decrease in physical activity. He denies fever, chills, presyncope/syncope, lightheadedness, limb swelling, numbness or tingling. Review of Systems Constitutional: as per Subjective / HPI Cardiovascular: + chest pain, + dyspnea and + dyspnea at rest; no radiating jaw, neck or arm pain, no dyspnea on exertion, no lightheadedness and no syncope Musculoskeletal: + back pain and + radicular pain; no swelling Hematologic / Lymphatic: no coagulopathy Physical Exam Constitutional: well nourished and + intoxicated appearing Eyes: + anicteric sclerae Respiratory: normal respiratory effort Auscultation: lungs clear to auscultation bilaterally Cardiovascular: Rate/Rhythm: + tachycardic Heart Sounds: normal S1, normal S2 and + murmur Vessels: normal peripheral pulses Extremities: normal capillary refill Chest (Breasts): Chest: normal inspection of chest Musculoskeletal: Extremities: extremities normal to inspection Skin: no rashes, warm and dry Results & Data ([facility]) Vital Signs (Past 12 Hours) Vital Signs Temp Pulse Pulse Resp BP BP Pulse Ox 01/15/22 08:00 37 C 93 H 18 153/90 H 93 01/15/22 03:48 37 C 71 16 130/71 92 01/14/22 22:15 69 01/14/22 23:26 36.6 C 73 16 138/80 98 01/14/22 22:18 O2 Del Method 01/15/22 08:00 Room Air 01/15/22 03:48 Room Air 01/14/22 22:15 01/14/22 23:26 Room Air 01/14/22 22:18 Room Air
[2022-01-15 09:45] LABS: Basophils # (auto) 0.03 K/uL (0-0.2); Basophils % (auto) 0.4 %; Eosinophils # (auto) 0.06 K/uL (0-0.50); Eosinophils % (auto) 0.8 %; Hematocrit (blood only) 47.6 % (40.1-51.0); Hemoglobin 15.5 g/dl (14.0-18.0); Immature Granulocytes # (auto) 0.03 K/uL (0.00-0.02); Immature Granulocytes % (auto) 0.4 %; Lymphocytes # (auto) 1.18 K/uL (1.2-3.4); Lymphocytes % (auto) 14.8 %; Mean Corpuscular Hemoglobin 27.8 pg (25.0-34.0); Mean Corpuscular Hgb Conc 32.6 g/dL (32.0-36.0); Mean Corpuscular Volume 85.3 fL (80.0-100.0); Mean Platelet Volume 9.8 fL (9.4-12.4); Monocytes # (auto) 0.73 K/uL (0.24-0.82); Monocytes % (auto) 9.1 %; Neutrophils # (auto) 5.97 K/uL (1.4-6.5); Neutrophils % (auto) 74.5 %; Platelet Count 249 K/uL (130-400); RDW Coefficient of Variation 13.9 % (11.5-14.5); RDW Standard Deviation 42.6 fL (36.4-46.3); Red Blood Count 5.58 M/uL (4.63-6.08)
[2022-01-15 09:58] LABS: Partial Thromboplastin Ratio 1.6; Partial Thromboplastin Time 42.7 Seconds (21.0-31.0)
[2022-01-15] MEDS ORDERED: oxyCODONE/ACETAMINOPHEN 5mg/325mg TAB PO PRN (10:05)
[2022-01-15] MEDS ORDERED: ACETAMINOPHEN 325 MG TAB PO SCH (12:00)
--- NOTE | 2022-01-15 12:50 | Discharge Summary ---
Date of Service January 15, 2022 Admission HPI Per Admitting Provider Kyle López is a 61yo M with a PMHx of BPH, HTN, and anemia who presents with SoB and who is found to have PEs on Er evaluation. L sided chest pain with a tearing sensation R sided PE Elevated DD and ?DVT many years ago but PE and dopplers wer enegative, no work up in many years. 2cm cavitary lesion in RUL. 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 On isolation precauations. EKG: nsr, ?LVH. No st segment changes. "Cachorro" reports yesterday he stated having a pain in the low L rib. He noticed that it had a numbing sensation to it and as the day progressed it started to increase in intensity with pain shooting and radiating into the middle/left back. Hurt the most when layin down, but if he layed on it on the L side pain would improve a little. Laying on the R side worsened the pain. Woke up this morning and pain was still there, a little worse and decided to go to the ER rathe than PCP appointment. Pain this mornign had a more stabbing quality. Deep breaths have a little wosening pain early in the breath, then levels out. Breathing in the R lateral decubitus is the most painful position. Sitting up seems to improve pain a little. At best 2/10, worst (breathing laying on R side) up to 9/10. No squeezing or high ches tpressure/pain. Denies shortness of breath, but gets some spasm which makes it painful to breath. No sweats/night sweats. No fevers or chills. No weight loss in the prior few months. No night sweats. No cough. No productive or dry cough, no cough at baseline No swollen glands/neck lymph nodes that hes noticed Had a CT scan 3 years ago and had a 2cm liver and kidney cyst which was obtained due to back pain by occupational assessment. Hx of L hip replacement 02/05/[address] Bryant in [place]. PHMX: HTN, HLD. Was pending initiation of statin and antihypertensive. Amitryptaline for sleep Terazosin for prostate and blood pressure. From [place]. 12.5 years in the [employer] and travelled. Was in war, then [place], After discharge joined [place] [employer] where he worked for 30 years. Had a [employer] regularly while in the [employer], no history of a positive one and for police screening always negative. COVID vaccinated x2 original shots Had COVID after his son brought home from school June 2020 No known COVID exposure in the last few months No FHX of prostate cancer, cancer, early OR, SCD, blood clots, or bleeding problems. Colonoscopy 1 year ago screenign was normal and recommend for 10 year followup 2 years ago did have leg swelling with heart racing from R knee distally and had a +DDimer, CA and US for DVT negative. Frequently takes car rides daily or every other day. takes drives wih his 2 year old son for 2-4 hours frequently. Was in the car when sx started. No leg swelling. Noted to have a larger heart and was very active in [employer] and was monitored previously. No history of output/obstruction. + Anemia, no history of bleeding. Now normal. Medical History: Reviewed Medications: Reviewed Surgical History: Reviewed Allergies: Reviewed Social History: No history of tobacco use. EtoH 3-5 nights per week, 3x shot equivalent of liquor. No history of shakes/withdrawal. No DTs. Frequently has several day strenches without issue. Code Status: Full Code. Surrogate Dm would be his Mckayla Handy [phone] Admission Exam (Per Admitting) Constitutional well nourished and + intoxicated appearing Eyes + anicteric sclerae Respiratory normal respiratory effort Auscultation: lungs clear to auscultation bilaterally Cardiovascular Rate/Rhythm: + tachycardic Heart Sounds: normal S1, normal S2 and + murmur Vessels: normal peripheral pulses Extremities: normal capillary refill Chest (Breasts) Chest: normal inspection of chest Musculoskeletal Extremities: extremities normal to inspection Skin no rashes, warm and dry Discharge Data Consultations 01/14/22 10:18 ED Decision to Admit Stat Hospital Course (1) Acute pulmonary embolism: This is a 61 y/o M with a pertaining history of DVT (3 years prior), HTN, BPH, Anemia presenting with 2 days of intermittent lower left-sides chest pain, and dyspnea. He was found to elevated D-Dimer and CTA was positive for a pulmonary embolism in the lower right lobe. He notes the pain in his chest comes with no pattern and while he is feeling the pain he becomes short of breath. The pain is felt in the front of his lower left ribs and in the left side of his back (around T8). He has not experienced anything like this before and has no history of PE or recent surgery. He has recently been taking long of drives to look at potential homes. Has a PSHx of left hip replacement in 2019. Since then he has decrease in physical activity. He denies fever, chills, presyncope/syncope, lightheadedness, limb swelling, numbness or tingling. Acute pulmonary embolism Mr. López arrived with chest pain with suspected pulmonary embolism. This diagnosis was confirmed on on CT angiogram and a positive D Dimer. He was treated with IV Heparin. Due to past medical history of possible DVT we recommend continuing anticoagulation therapy indefinitely with a Eliquis 10 mg BID twice per day with food for the following 7 days. There after we recommend continuing with prophylactic therapy by decreasing the dose to 5 mg twice per day with food. Please follow up with a primary care provider in one week. (2) Pulmonary cavitary lesion: Suspect to be an inflammatory process Follow up with CT in 2 months Very low suspicion of TB as discussed with pulmonology TB Gold test pending (3) Hypertension: Olmesartan 20mg and sent to pharmacy Discussed with primary care provider (4) HLD (hyperlipidemia): Atorvastatin 40mg started and sent to pharmacy Discussed with primary care provider (5) BPH (benign prostatic hyperplasia): Continue Terazosin Supervising Physician Co-Signing Physician Notes I personally examined the patient and verified all fulton points of history and exam, discussed case, and agree with decision making with Cara Bullock Feeling better and would like to go home. Describes left chest pain as like a spasm, hurts more to take a deep breath, radiates around to the back, somewhat positional, somewhat episodic. Mostly gone, but has residual lower back pain Vitals noted, in general he is awake and alert pleasant no distress. HEENT normocephalic atraumatic mucous membranes moist. Breathing unlabored no accessory muscle use good effort. Osteopathic/musculoskeletal shows his left- sided mid thoracic paraspinals to be high tone tender decreased range of motion, and left-sided rib cage to be somewhat exhaled compared to the rightbalanced ligamentous tension and direct myofascial with some improvementpatient tolerated well. PEEliquis, safe for home Left upper lung abnormalityQuantiFERON pending, low suspicion for active infection or active diseaseoutpatient follow-up, probably reimage with CT in a few months Left sided chest paingiven that his PE is on the right, I doubt that the pleuritic from that, probably rib related given his somatic dysfunctionsomatic dysfunction of the rib cageOMT as above Safe/stable for home, otherwise as above
[2022-01-15 16:54] LABS: Partial Thromboplastin Ratio 1.1; Partial Thromboplastin Time 30.6 Seconds (21.0-31.0)
[2022-01-15] MEDS ORDERED: APIXABAN 5 MG TABLET PO ONE (17:00)
--- NOTE | 2022-01-15 18:24 | Billing Data ---
Date of Service January 15, 2022 Coding Level of Care Code D/C DAY MANAGEMENT <30 MINS
--- NOTE | 2022-01-15 18:24 | Hospitalist Progress Note ---
Date of Service January 15, 2022 Assessment & Plan Admission and Anticipated Discharge Date Admission Date: January 14, 2022 Results & Data Results & Data ([facility]) Vital Signs (Past 12 Hours) Vital Signs Temp Pulse Pulse Resp BP BP Pulse Ox 01/15/22 17:09 98.6 F 93 H 18 130/71 93 01/15/22 10:32 01/15/22 09:46 76 01/15/22 08:00 98.6 F 93 H 18 153/90 H 93 O2 Del Method 01/15/22 17:09 01/15/22 10:32 Room Air 01/15/22 09:46 01/15/22 08:00 Room Air PG Care Time/CCT Total # of Minutes Spent Total Time Spent with Patient: Total time spent is greater than 50% in coordination of care (as documented) at patient's floor/unit and/or counseling patient: Coding Level of Care Code None CPT Codes Musculoskeletal - Musculoskeletal: [address] 1-2 Body regions ([id number])
[2022-01-17 14:31] LABS: Quantiferon Mitogen-NIL >10.00 IU/mL; Quantiferon NIL 0.05 IU/mL; Quantiferon TB Gold Plus NEGATIVE (NEGATIVE); Quantiferon TB2-NIL 0.02 IU/mL
== END 2022-01-15 17:59 | disposition home or self-care (01) | DRG 176 ==
LOC: ED 08:09 → SUATTDRO 11:09 → EDINP 11:09 → 2W 17:57